=== PATIENT | female | born 1970 | race American Indian/Alaskan Native ===

== ENCOUNTER 2018-05-19 02:55 | Emergency (ER) | payer SELFPAY ==
[2018-05-19 03:08] VITALS: BP 201/96
--- NOTE | 2018-05-19 03:37 | XRay Report ---
FINAL REPORT EXAM: XR SHOULDER 2+V RT HISTORY: trauma, pain TECHNIQUE: Three views of the right shoulder were submitted. FINDINGS: There is no evidence of acute fracture. The AC joint and glenoid joint appear intact. The surrounding soft tissues well maintained. IMPRESSION: No acute injury.
== END 2018-05-19 04:55 | disposition left against medical advice (07) ==
LOC: ED 02:55
DX: M25.511 Pain in right shoulder (principal); Z53.21 Procedure and treatment not carried out due to patient leaving prior to being seen by health care provider